=== PATIENT | male | born 1985 ===

== ENCOUNTER → 2017-03-02 11:11 | Day surgery (SDC) | payer OTHER ==
[~2017-03-02 11:11] MED LIST: Bupivacaine 0.5% SDV PF* 30 ML VIAL ONE; Bupivacaine 0.5% W/EPI SDV* 30 ML VIAL ONE; Lidocaine 1% INJ* 10 MG/ML 30 ML SDV ONE; oxyCODONE/Acetamin 5/325 MG* TAB PO PRN
--- NOTE | 2017-03-02 12:19 | PN ---
Progress Note - Progress Note Note: Surgery I have met with and examined Ulices Jak Blas. I agree that he would benefit from I & D of his right leg wound. I explained to him the nature of the procedure, its risks, benefits, and alternatives. He understands and agrees to proceed. Dana
--- NOTE | 2017-03-02 13:23 | SURGPN ---
Brief Operative Note - Surgery Procedures: 03/02/17 Op Note Pre-op dx: infected wound right leg Post-op dx: same Procedure: I & D infected right leg wound Surgeon: Barrett Asst: none Anesth: local EBL: 5 cc complications: none Pt. tolerated procedure well and was transferred to in a stable condition. CLFoster
[2017-03-02 13:34] VITALS: BP 127/76
--- NOTE | 2017-03-03 09:04 | OP ---
CC: [facility]; [facility] OPERATIVE REPORT: DATE OF OPERATION: 03/02/17 DATE OF : 89 SURGEON: Aiad Hyde MD PROGRAM COORDINATOR: There was no central supply assistant for this case. PRE-OP DIAGNOSIS: Infected right leg wound. POST-OP DIAGNOSIS: Infected right leg wound. OPERATIVE PROCEDURE: Incision and drainage of infected right leg wound. INDICATIONS: The patient is a 32-year-old male who presented to the office with a puncture wound of the right lower extremity sustained during a fall down a mantle cover into a shirt sewer system some week s ago. The wound had an obvious tract that needed unroofing and plans were made for surgical interv ention. DESCRIPTION OF PROCEDURE: He was brought to the operating room, placed on the OR table in the supin e position and the right leg was prepped and draped in the usual sterile fashion. After infiltratin g extensively with local anesthetic, a probe was inserted into the wound to ascertain the direction of the tract and then an incision was made over the probe. The open wound was then curetted and the subcutaneous granulation tissue was excised with the curette. It should be mentioned that upon ope gildardo of the apex of the wound, there was some purulent drainage and therefore, cultures were sent of this area. The wound was irrigated with saline and then an Aquacel rope was placed in the base of the wound and the cavity was then packed with 4x4 and covered with a dry sterile dressing. All spon ge and instrument counts were correct. The patient was tolerated the procedure well and was transfe rred to Recovery in stable condition. [id number]/[facility] #: [id number]
== END | disposition home or self-care (01) ==
LOC: OR 11:11
PROVIDERS: ATTEND Surgery
DX: S81.801A Unspecified open wound, right lower leg, initial encounter (principal); L03.115 Cellulitis of right lower limb; W17.89XA Other fall from one level to another, initial encounter; Y93.89 Activity, other specified; Y92.488 Other paved roadways as the place of occurrence of the external cause; Z87.891 Personal history of nicotine dependence
CPT/HCPCS: 87070; 87073; 87205; J2001